=== PATIENT | male | born 1940 | race Caucasian/White ===

== ENCOUNTER 2017-03-18 09:09 | Inpatient (IN) | payer MEDICARE ==
[~2017-03-18] VITALS: Ht 175.3 cm; Wt 76.6 kg
[2017-03-20] MEDS ORDERED: MERC50TA PO (10:15)
[2017-03-20] MEDS ORDERED: LIAL1.2T PO (10:15)
[2017-03-20] MEDS ORDERED: AMLO5TAB2 PO (10:15)
[2017-03-20] MEDS ORDERED: HYDR25TA5 PO (10:15)
[2017-03-20] MEDS ORDERED: MULTTAB23 PO (10:15)
[2017-03-20] MEDS ORDERED: TIMO0.5S30 RIGHT EYE (10:15)
[2017-03-20] MEDS ORDERED: ATOR20TA15 PO (10:15)
[2017-03-20] MEDS ORDERED: VITA2000 PO (10:15)
[2017-03-20] MEDS ORDERED: LEVO100T5 PO (10:15)
[2017-03-20] MEDS ORDERED: FLAX100013 PO (10:15)
[2017-03-20] MEDS ORDERED: LATA0.002 RIGHT EYE (10:15)
[2017-03-20] MEDS ORDERED: METO50TA11 PO (10:29)
[2017-03-27] MEDS ORDERED: ONDANSETRON HCL 4 MG/2 ML VIAL IV PUSH ONE (11:45)
[2017-03-27] MEDS ORDERED: NEOSTIGMINE 3 MG/3 ML SYR IV ONE (11:45)
[2017-03-27] MEDS ORDERED: PROPOFOL 200 MG/20 ML AMP IV ONE (11:45)
[2017-03-27] MEDS ORDERED: SODIUM CHLORID 0.9% 500 ML INJ 500 ML IV ONE (11:45)
[2017-03-27] MEDS ORDERED: LACTATED RINGER'S 1000 ML INJ 2,000 ML IV ONE (11:45)
[2017-03-27] MEDS ORDERED: SODIUM CHLOR 0.9% 250 ML INJ 250 ML IV ONE (11:45)
[2017-03-27] MEDS ORDERED: PHENYLEPH/NS 1000 MCG/10 ML SYR IV ONE (11:45)
[2017-03-27] MEDS ORDERED: LACTATED RINGER'S 1000 ML IV PRN (13:00)
[2017-03-27] MEDS ORDERED: METOPROLOL TARTRATE 25 MG TAB PO PRN (13:00)
[2017-03-27] MEDS ORDERED: INSULIN HUMAN REGULAR 1,000 UNITS/10 ML VIAL SQ PRN (13:00)
[2017-03-27] MEDS ORDERED: POVIDONE IODINE 5% (ANTISEPSIS KIT) 4 APPLICATIONS EACH NARE PRN (13:00)
[2017-03-27] MEDS ORDERED: SODIUM CHLORID 0.9% 500 ML IV PRN (13:00)
[2017-03-27] MEDS ORDERED: CHLORHEXIDINE GLUCONATE 2 % 1 PACK (2 CLOTHS) TOPICAL PRN (13:00)
[2017-03-27 13:08] VITALS: BP 157/82; PULSE 82; RESP 16; TEMP 98.2; O2SAT 97
[2017-03-27] MEDS ORDERED: ALVIMOPAN 12 MG CAPSULE - On Call PO SCH (13:15)
[2017-03-27] MEDS ORDERED: ceFAZolin 1,000 MG/NS 100 ML IV SCH ×2 (13:15)
[2017-03-27] MEDS ORDERED: METRONIDAZOLE 500 MG/100 ML ISONTONIC SOLN IV SCH (13:30)
[2017-03-27] MEDS: DEXT 5%-NACL 0.9% 1000 ML INJ 1,000 ML IV SCH ×2 (13:30→21:30)
[2017-03-27] MEDS ORDERED: FAMOTIDINE 20 MG/2 ML VIAL ONE (14:33)
[2017-03-27] MEDS ORDERED: ACETAMINOPHEN 1000 MG/100 ML VIAL IV ONE (14:33)
[2017-03-27] MEDS ORDERED: fentaNYL CITRATE 250 MCG/5 ML AMP ONE ×2 (14:33→17:36)
[2017-03-27] MEDS ORDERED: MIDAZOLAM HCL 2 MG/2 ML VIAL ONE (14:33)
--- NOTE | 2017-03-27 15:58 | ECHRPT ---
Indication: EF CHF/ R/O CONCLUSIONS Normal left ventricular size. Wall thickness is normal. The left ventricular systolic function is mildly reduced with an estimated ejection fraction in the range of 45- 50%. The left atrial size is upper limits of normal. Normal atrial septal thickness Trace mitral valve regurgitation. Mitral annular calcification is present. Mild aortic valve stenosis. Moderate thickening of the aortic valve leaflet. Aortic valve mean gradient is 21 mmHg. Trace aortic valve regurgitation. BP: / HR: Rhythm: Other MEASUREMENTS (Male / Female) Normal Values Technical Quality: 2D ECHO LV Diastolic Diameter PLAX 4.8 cm 4.2 - 5.9 / 3.9 - 5.3 cm LV Systolic Diameter PLAX 3.7 cm IVS Diastolic Thickness 0.8 cm 0.6 - 1.0 / 0.6 - 0.9 cm LVPW Diastolic Thickness 0.8 cm 0.6 - 1.0 / 0.6 - 0.9 cm LV Relative Wall Thickness 0.3 LVOT Diameter 2.0 cm DOPPLER AV Peak Velocity 312.2 cm/s AV Peak Gradient 39.0 mmHg AV Mean Gradient 18.8 mmHg AV Velocity Time Integral 69.1 cm LVOT Peak Velocity 92.7 cm/s LVOT Peak Gradient 3.4 mmHg LVOT Velocity Time Integral 25.9 cm AV Area Cont Eq vti 1.2 cm AV Area Cont Eq pk 0.9 cm TR Peak Velocity 239.0 cm/s TR Peak Gradient 22.8 mmHg FINDINGS LEFT VENTRICLE Normal left ventricular size. Wall thickness is normal. The left ventricular systolic function is mildly reduced with an estimated ejection fraction in the range of 45- 50%. RIGHT VENTRICLE Normal right ventricular size and systolic function. LEFT ATRIUM The left atrial size is upper limits of normal. RIGHT ATRIUM The right atrial size is normal. ATRIAL SEPTUM Normal atrial septal thickness MITRAL VALVE Trace mitral valve regurgitation. Mitral annular calcification is present. AORTIC VALVE Mild aortic valve stenosis. Moderate thickening of the aortic valve leaflet. Aortic valve mean gradient is 21 mmHg. Trace aortic valve regurgitation. TRICUSPID VALVE Structurally normal tricuspid valve. No tricuspid valve stenosis or regurgitation. Yossi Buckner MD (Electronically Signed) Final Date:27 March 2017 15:56
[2017-03-27] MEDS: D5-LR + KCL 20 MEQ INJ 1,000 ML IV SCH ×2 (17:28→18:45)
[2017-03-27] MEDS ORDERED: ENALAPRILAT 1.25 MG/ML VIAL IV PRN (17:30)
[2017-03-27] MEDS ORDERED: KETOROLAC TROMETHAMINE 30 MG/ML (IVP) VIAL IVP PRN (17:30)
[2017-03-27] MEDS ORDERED: NALOXONE HCL 0.4 MG/ML AMP IV PRN (17:30)
[2017-03-27] MEDS ORDERED: Post-op Orders (for Pharmacy) MISC XX ONE (17:30)
[2017-03-27] MEDS ORDERED: ZOLPIDEM TARTRATE 5 MG TAB PO PRN (17:30)
[2017-03-27] MEDS ORDERED: ONDANSETRON HCL 4 MG/2 ML VIAL IV PRN (17:30)
[2017-03-27] MEDS ORDERED: DO NOT ADM ANY ANTICOAGULANT DRUGS PRN (17:30)
[2017-03-27] MEDS ORDERED: ACETAMINOPHEN/HYDROcodone 325 MG/5 MG TAB PO PRN ×2 (17:30)
[2017-03-27] MEDS ORDERED: SODIUM CHLORIDE 0.9% FLUSH 10 ML FLUSH IV FLUSH PRN (17:30)
[2017-03-27] MEDS ORDERED: BENZOCAINE 6 MG/MENTHOL 10 MG LOZENGE BUCCAL PRN (17:30)
[2017-03-27] MEDS ORDERED: POTASSIUM CHLOR 40 MEQ PREMIX 100 ML IV PRN (17:30)
[2017-03-27] MEDS: METOCLOPRAMIDE HCL 10 MG/2 ML VIAL IVS SCH ×2 (18:00→23:42)
[2017-03-27 18:35] LABS: AUTOMATED NEUTROPHIL # 21.1 TH/MM3 (1.8-7.7); BASOPHIL # 0.1 TH/MM3 (0-0.2); BASOPHIL % 0.5 % (0.0-2.0); EOSINOPHIL # 0.1 TH/MM3 (0-0.4); EOSINOPHIL % 0.4 % (0.0-4.0); HEMATOCRIT 37.6 % (39.0-51.0); LYMPH % 8.9 % (9.0-44.0); LYMPHOCYTE # 2.3 TH/MM3 (1.0-4.8); MEAN CELL VOLUME 91.1 FL (80.0-100.0); MEAN CORPUSCULAR HEMOGLOBIN 31.4 PG (27.0-34.0); MEAN CORPUSCULAR HGB CONC 34.4 % (32.0-36.0); MONO % 8.8 % (0.0-8.0); NEUT % 81.4 % (16.0-70.0); PLATELET COUNT 329 TH/MM3 (150-450); RED BLOOD COUNT 4.12 MIL/MM3 (4.50-5.90); RED CELL DISTRIBUTION WIDTH 13.7 % (11.6-17.2)
[2017-03-27 18:39] LABS: HEMO FLAGS AUTO DIFF
[2017-03-27] MEDS: MORPHINE SULFATE 30 MG/30 ML PCA IV SCH (18:46)
[2017-03-27 18:50] LABS: POTASSIUM 2.7 MEQ/L (3.5-5.1)
[2017-03-27] MEDS: POTASSIUM CHLOR 20 MEQ PREMIX 100 ML IV PRN ×2 (19:02→21:26)
[2017-03-27 19:22] LABS: BANDS 2 % (0-6); NEUTROPHIL # MANUAL DIFF 21.1 TH/MM3 (1.8-7.7); PLATELET ESTIMATE SMEAR NORMAL (NORMAL); PLATELET MORPHOLOGY NORMAL (NORMAL); POLYS (SEG NEUTROPHILS) 79 % (16-70); SCAN/DIFF FINAL DIFF MANUAL; WBC DIFF SAMPLE 100
[2017-03-27 20:00] VITALS: BP 128/59; PULSE 85; RESP 22; TEMP 97.8; O2SAT 99
[2017-03-27] MEDS: SODIUM CHLORIDE 0.9% FLUSH 10 ML FLUSH IV FLUSH SCH (21:00)
[2017-03-27] MEDS: FUROSEMIDE 20 MG/2 ML VIAL IV SCH (21:27)
[2017-03-27] MEDS: metroNIDAZOLE 500 MG INJ 100 ML IV SCH (21:27)
[2017-03-27 22:00] VITALS: BP 119/63; PULSE 82; PULSE 91; RESP 21; RESP 22; TEMP 97.9; O2SAT 96
[2017-03-27] MEDS: PCA - TOTAL MG MORPHINE DELIVERED PER SHIFT SCH (22:00)
[2017-03-27] MEDS: ceFAZolin 2 GM PREMIX 50 ML IV SCH (22:22)
[2017-03-28] VITALS (12 sets, daily range): BP systolic 121–141; BP diastolic 58–64; PULSE 72–96; RESP 17–25; TEMP 96.2–98.6; O2SAT 92–97
[2017-03-28] MEDS: D5-LR + KCL 20 MEQ INJ 1,000 ML IV SCH ×6 (00:08→20:21)
[2017-03-28] MEDS: DEXT 5%-NACL 0.9% 1000 ML INJ 1,000 ML IV SCH (01:57)
[2017-03-28 02:31] LABS: AUTOMATED NEUTROPHIL # 16.6 TH/MM3 (1.8-7.7); BASOPHIL # 0.1 TH/MM3 (0-0.2); BASOPHIL % 0.3 % (0.0-2.0); HEMATOCRIT 37.8 % (39.0-51.0); HEMO FLAGS DIFF FINAL; LYMPH % 4.4 % (9.0-44.0); LYMPHOCYTE # 0.8 TH/MM3 (1.0-4.8); MEAN CELL VOLUME 91.3 FL (80.0-100.0); MEAN CORPUSCULAR HEMOGLOBIN 31.2 PG (27.0-34.0); MEAN CORPUSCULAR HGB CONC 34.1 % (32.0-36.0); MONO % 9.5 % (0.0-8.0); NEUT % 85.8 % (16.0-70.0); PLATELET COUNT 285 TH/MM3 (150-450); RED BLOOD COUNT 4.14 MIL/MM3 (4.50-5.90); RED CELL DISTRIBUTION WIDTH 13.8 % (11.6-17.2); WHITE BLOOD COUNT 19.3 TH/MM3 (4.0-11.0)
[2017-03-28 02:54] LABS: BICARBONATE 29.3 MEQ/L (21.0-32.0); POTASSIUM 3.1 MEQ/L (3.5-5.1)
[2017-03-28] MEDS: POTASSIUM CHLOR 20 MEQ PREMIX 100 ML IV PRN (03:07)
[2017-03-28 03:15] LABS: CALCIUM-PROTEIN CORRECTED 7.4 MG/DL (8.5-10.1)
[2017-03-28] MEDS: ceFAZolin 2 GM PREMIX 50 ML IV SCH ×2 (05:43→13:34)
[2017-03-28] MEDS: METOCLOPRAMIDE HCL 10 MG/2 ML VIAL IVS SCH ×3 (05:43→16:47)
[2017-03-28] MEDS: metroNIDAZOLE 500 MG INJ 100 ML IV SCH ×2 (05:43→14:19)
[2017-03-28] MEDS: LEVOTHYROXINE SODIUM 100 MCG TAB PO SCH (06:00)
[2017-03-28] MEDS: PCA - TOTAL MG MORPHINE DELIVERED PER SHIFT SCH ×3 (06:00→20:22)
--- NOTE | 2017-03-28 06:58 | HHI.PR ---
Subjective Remarks No N or V. Not much pain. Objective Vital Signs Date Time Temp Pulse Resp B/P Pulse Ox O2 Delivery O2 Flow Rate FiO2 03/28/17 06:00 20 03/28/17 06:00 20 03/28/17 06:00 80 03/28/17 04:07 20 03/28/17 04:00 89 03/28/17 04:00 98.0 89 24 122/58 96 03/28/17 02:00 82 03/28/17 00:00 98.0 80 19 125/58 95 03/28/17 00:00 80 03/27/17 22:00 97.9 91 21 119/63 96 03/27/17 22:00 82 03/27/17 22:00 22 03/27/17 22:00 22 03/27/17 20:00 97.9 79 18 117/57 100 Nasal Cannula 2 03/27/17 20:00 97.8 85 22 128/59 99 03/27/17 19:45 83 20 122/59 100 Nasal Cannula 2 03/27/17 19:30 83 16 118/59 100 Nasal Cannula 2 03/27/17 19:03 16 03/27/17 19:00 80 16 117/56 100 Nasal Cannula 2 03/27/17 18:46 16 03/27/17 18:30 77 16 115/55 99 Nasal Cannula 2 03/27/17 18:15 77 16 118/56 100 Nasal Cannula 2 03/27/17 18:00 78 16 122/59 96 Nasal Cannula 2 03/27/17 17:45 78 16 121/64 100 Nasal Cannula 2 03/27/17 17:30 81 15 135/67 100 Nasal Cannula 4 03/27/17 17:26 98.1 78 16 128/68 100 Nasal Cannula 4 03/27/17 13:08 98.2 82 16 157/82 97 I/O 03/27/17 03/27/17 03/27/17 03/28/17 03/28/17 03/28/17 06:59 14:59 22:59 06:59 14:59 22:59 Intake Total 1252 ml 1437 ml Output Total 1620 ml 1910 ml Balance -368 ml -473 ml Intake Oral 120 ml IV Total 1252 ml 1317 ml Output Urine Total 1450 ml 1850 ml Stool Total 0 ml 0 ml Drainage Total 170 ml 60 ml # Voids 1 Result Diagram: 03/28/1721103/28/17211 Objective Remarks VS-S Abd: flat,stoma pink I&Os-OK Labs- K+ being repleted Assessment and Plan Assessment and Plan Stable POD#1 Transfer,IV to [facility] Sundar Malloy MD Mar 28, 2017 06:58
[2017-03-28] MEDS: METOPROLOL SUCCINATE 50 MG EXTENDED RELEASE TAB PO SCH (08:27)
[2017-03-28] MEDS: amLODIPine BESYLATE 5 MG TAB PO SCH ×2 (08:27→20:22)
[2017-03-28] MEDS: HYDROCHLOROTHIAZIDE 25 MG TAB PO SCH (08:27)
[2017-03-28] MEDS: FUROSEMIDE 20 MG/2 ML VIAL IV SCH ×2 (08:27→20:22)
[2017-03-28] MEDS: ALVIMOPAN 12 MG CAPSULE - Post-op dosing PO SCH ×2 (08:27→20:22)
[2017-03-28] MEDS: TIMOLOL MALEATE 0.5% OPHT SOLN 5 ML BTL RIGHT EYE SCH (08:28)
[2017-03-28] MEDS: PANTOPRAZOLE SODIUM 40 MG VIAL IVP SCH (08:28)
[2017-03-28] MEDS: SODIUM CHLORIDE 0.9% FLUSH 10 ML FLUSH IV FLUSH SCH ×2 (08:28→20:22)
[2017-03-28] MEDS ORDERED: PNEUMOCOCCAL POLYVALENT INJ 25 MCG/0.5 ML SYR IM ONE (10:00)
--- NOTE | 2017-03-28 10:57 | PD.WCN.NOT ---
Wound Consult Description: Consult for NEW OSTOMY TEACHING of ILEOSTOMY per Dr Malloy Communicated with: Patient Recommendation: Drink plenty of fluids and watch the nurses open, empty, and close pouch. Practice opening and closing pouch from ileostomy kit that was given Additional Information: Patient seen on for Ostomy assessment and teaching Ostomy Type: Ileostomy Surgeon: Sundar Malloy MD Date of Surgery: Mar 27, 2017 Educated patient on: Watch the nurses open the pouch, empty the pouch, and close the pouch. Read booklet that was left for ileostomy information. Practice opening and closing pouch in the kit provided. Additional information Patient states that he has never had surgery before and asked what is expected of him regarding the ostomy. It was explained that the patient should be watching the nurses empty the pouch of his liquid coming out of his stoma. At discharge that is something that he will need to know how to do on his own. He stated that he could hardly move around this morning and voices concerns over having to take care of this. The patient was further educated on the transition that would take place over the next few days and he would become more mobile. Education materials will be left for him to read and appliances he can use for practice as well. Patient will be seen on Friday for follow up of more education. Stoma is visualized on the right lower abdomen. Stoma is dark pink, round, moist, moderately protruding, functioning with ~25ml of green liquid effluent noted in pouch with minimal air. Stoma is mildly edematous and lumen is noted at 4 o'clock. Appliance is intact with foam tape noted to the lower abdomen. Patients tray was placed on his bedside table and the patient was assisted to a sitting position so that he could eat his breakfast prior to leaving patient room. Merline Sanders [facility] Mar 28, 2017 10:57
--- NOTE | 2017-03-28 12:49 | MP ---
cc: TRE MANDUJANO,AMARIS Bartholomew M.D. DATE OF SURGERY: 03/27/2017 PREOPERATIVE DIAGNOSIS Colovesical fistula secondary to Crohn's disease. 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 PROCEDURE 1. Left colectomy with low colorectal anastomosis. 2. Appendectomy. 3. Mobilization of the splenic flexure with omental pelvic flap. SURGEON Dr. Malloy P[employer]ER PROP PLAYER SURGEON Dr. Yao ANESTHESIA General endotracheal. OPERATING TIME One hour and 40 minutes. OPERATIVE FINDINGS This patient had known Crohn's disease for at least 15 years. He developed a colovesical fistula as evidenced by cystoscopy and CT scan. Colonoscopy showed that he had mid rectal Crohn's disease along with some sigmoid disease and he has always had his Crohn's disease located in the rectosigmoid region. He had been maintained on 6-mercaptopurine and Lialda and has been off of his mercaptopurine for approximately six weeks. Because of the rectal-sparing we offered him a chance at colectomy with colorectal or coloanal anastomosis with temporary diversion and he decided to do follow through with this procedure. Exploration of the abdominal cavity revealed that the liver was palpably normal as was the gallbladder. The remainder of the colon and small bowel was normal except for the appendix which was dilated and the tip of the appendix was stuck in the colovesical fistula region. For this reason it was excised en bloc with the specimen. OPERATIVE TECHNIQUE The patient was placed on the table in the supine position. After adequate general endotracheal anesthesia the legs were placed in the perineal lithotomy position and the abdomen and perineum were prepped and draped in the usual manner. A transverse infraumbilical skin incision was made and carried down through subcutaneous tissue and the rectus muscles and the peritoneal cavity was entered with the above-mentioned findings. Our attention was turned to the sigmoid colon. It was mobilized along its peritoneal reflection up the descending colon and the splenic flexure and the transverse colon was fully mobilized, mobilizing the omentum from the transverse colon. Next, the left ureter was identified and the superior hemorrhoidal vessels were doubly clamped, cut and doubly ligated with 0 Vicryl ligatures and the inferior mesenteric vein was likewise clamped, cut and ligated. The retrorectal space was entered and the process was stuck to the bladder dome and it was dissected free of the bladder dome encountering about 2 cc of purulent material which was aspirated. The remainder of the dissection was taken along the dome of the bladder, not entering the bladder or the lower sigmoid colon. Next, the base of the fistula site on the dome of the bladder was inspected and curetted clean and then hemostasis was obtained with electrocautery. No definite large hole could be found in the bladder dome. Next, the lateral pelvic peritoneum was incised bilaterally and the retrorectal space was dissected down the avascular plane right to the pelvic floor. The lateral pelvic peritoneum was incised bilaterally and the anterior cul-de-sac was also dissected and the cul-de-sac was dissected down posterior to the prostate to the pelvic floor as well. Once we circumferentially dissected down to the pelvic floor the full mesorectum had been mobilized and the lower rectum was cleared and the Contour stapling device was placed across the lower rectum a couple of centimeters above his pelvic floor. Once the rectum was divided the left colic vessels were clamped, cut and ligated and the dissection was taken up to the marginal vessels distal to the middle colic vessels. Once this was done a place for division of the colon was decided and it was in the upper descending colon. The remainder of the mesentery was clamped, cut and ligated and the colon was cleared and it was good quality without any evidence of Crohn's disease. A pursestring stapling device was placed on this and a 29 anvil of the [employer] EEA stapling instrument was placed in the proximal bowel and the pursestring was tied. Next, the EEA instrument was inserted into the anal canal and the trocar was brought out through the center of the Contour staple line and the instrument was connected, closed and fired creating the anastomosis with two circular doughnuts and no tension on the anastomosis. The blood supply was excellent on inspection. Dr. Yao then did proctosigmoidoscopy examination insufflating air into the very low rectum and saline solution was placed in the pelvis and no air leaks were identified. Next, the omentum was brought down the left colic gutter and placed anterior to the rectal anastomosis and posterior to the area where the bladder fistula was. It should be mentioned that the appendix base was stapled with a TX 30 at the base of the cecum and then the appendix was ligated and the tip of the appendix had been stuck in the colovesical fistula area and it was resected en bloc with this dissection described above. Once the omental flap was placed a #10 Jose drain was placed through a separate stab wound in the right lower quadrant, placed in the posterior pelvis. The abdominal cavity was irrigated thoroughly with 3 liters of saline solution and aspirated dry as was the pelvis. A stoma site was made in the right upper quadrant at the midportion of the rectus muscle and a point was chosen for the diverting ileostomy. A window was made in the mesentery and the distal limb of the ileostomy was stapled closed with a TX 30 stapling device. The ileostomy was brought out through the stoma site and the small bowel was then laid in the abdominal cavity in an healthcare account manager manner after inspection for hemostasis which was kept controlled with ligature and cautery throughout the case. Once this was done the abdominal cavity was closed in layers using double-stranded #1 PDS for the posterior rectus sheath, irrigating the muscle layer with a liter of saline solution and then closing the anterior rectus sheath with a double-stranded #1 PDS as well. The subcutaneous tissue was irrigated thoroughly with saline solution and aspirated dry, and then the skin was closed with running 3-0 Vicryl subcuticular suture. The ileostomy was matured in loop fashion, having previously closed the distal limb with a stapler. It was matured with interrupted 3-0 Vicryl sutures and a 57 mm appliance was placed on the ileostomy. Dressings were applied. Sponge, needle and instrument counts were reported as correct. The estimated blood loss was 25 cc. Operating time was one hour and 40 minutes. The patient tolerated the procedure well and left the operating room in good condition. MD SOPHIA Denise/PAGE /5:37 PM /12:21 PM
--- NOTE | 2017-03-28 13:18 | PD.WCN.NOT ---
Wound Consult Description: Consult for NEW OSTOMY TEACHING of ILEOSTOMY per Dr Malloy Communicated with: Patient Mary Kate Recommendation: Drink plenty of fluids and watch the nurses open, empty, and close pouch. ileostomy kit given to patient, booklet taken out and shown to patient prior to him being moved to [address] [place] [address] so that he can read this and become familiar with terms and familiarize himself with the appliance in the kit. Additional Information: Patient is being transferred to [address] [place] [address] and will be followed up on Friday. Ostomy Type: Ileostomy Surgeon: Sundar Malloy MD Date of Surgery: Mar 27, 2017 Complete: Starter kit, Education materials Additional information Patient is measuring 1 1/2" supplies ordered for 2 1/4" [facility]line [facility] Mar 28, 2017 13:18
[2017-03-28] MEDS: ATORVASTATIN 20 MG TAB PO SCH (20:22)
[2017-03-28] MEDS: LATANOPROST 0.005% OPHT SOLN 2.5 ML BTL RIGHT EYE SCH (20:23)
[2017-03-28] MEDS ORDERED: ALVIMOPAN 12 MG CAPSULE PO SCH (21:00)
[2017-03-29] VITALS: BP 123/65; PULSE 98; RESP 18; TEMP 95.9; O2SAT 92
[2017-03-29] MEDS: D5-LR + KCL 20 MEQ INJ 1,000 ML IV SCH ×3 (00:13→08:41)
[2017-03-29] MEDS: METOCLOPRAMIDE HCL 10 MG/2 ML VIAL IVS SCH ×5 (00:13→23:36)
[2017-03-29] MEDS: MORPHINE SULFATE 30 MG/30 ML PCA IV SCH (03:22)
[2017-03-29] MEDS: PCA - TOTAL MG MORPHINE DELIVERED PER SHIFT SCH ×3 (04:39→20:16)
[2017-03-29] MEDS: LEVOTHYROXINE SODIUM 100 MCG TAB PO SCH (04:39)
[2017-03-29 07:39] LABS: AUTOMATED NEUTROPHIL # 18.2 TH/MM3 (1.8-7.7); BASOPHIL # 0.1 TH/MM3 (0-0.2); BASOPHIL % 0.4 % (0.0-2.0); EOSINOPHIL # 0.1 TH/MM3 (0-0.4); EOSINOPHIL % 0.3 % (0.0-4.0); HEMATOCRIT 36.5 % (39.0-51.0); LYMPH % 7.6 % (9.0-44.0); LYMPHOCYTE # 1.7 TH/MM3 (1.0-4.8); MEAN CELL VOLUME 90.9 FL (80.0-100.0); MEAN CORPUSCULAR HEMOGLOBIN 31.1 PG (27.0-34.0); MEAN CORPUSCULAR HGB CONC 34.3 % (32.0-36.0); MONO % 11.9 % (0.0-8.0); NEUT % 79.8 % (16.0-70.0); PLATELET COUNT 274 TH/MM3 (150-450); RED BLOOD COUNT 4.01 MIL/MM3 (4.50-5.90); RED CELL DISTRIBUTION WIDTH 13.9 % (11.6-17.2); WHITE BLOOD COUNT 22.8 TH/MM3 (4.0-11.0)
[2017-03-29 07:46] LABS: HEMO FLAGS AUTO DIFF
[2017-03-29 07:54] LABS: BICARBONATE 29.5 MEQ/L (21.0-32.0); POTASSIUM 3.1 MEQ/L (3.5-5.1)
[2017-03-29 08:00] VITALS: BP 121/62; PULSE 88; RESP 16; TEMP 98.1; O2SAT 94
[2017-03-29] MEDS: PANTOPRAZOLE SODIUM 40 MG VIAL IVP SCH (08:30)
[2017-03-29] MEDS: FUROSEMIDE 20 MG/2 ML VIAL IV SCH ×2 (08:30→20:16)
[2017-03-29] MEDS: ALVIMOPAN 12 MG CAPSULE - Post-op dosing PO SCH ×2 (08:30→20:16)
[2017-03-29] MEDS: amLODIPine BESYLATE 5 MG TAB PO SCH ×2 (08:30→20:16)
[2017-03-29] MEDS: METOPROLOL SUCCINATE 50 MG EXTENDED RELEASE TAB PO SCH (08:30)
[2017-03-29] MEDS: SODIUM CHLORIDE 0.9% FLUSH 10 ML FLUSH IV FLUSH SCH ×2 (08:30→20:16)
[2017-03-29 08:31] LABS: SCAN/DIFF AUTO DIFF CONFIRMED
[2017-03-29] MEDS: HYDROCHLOROTHIAZIDE 25 MG TAB PO SCH (08:31)
[2017-03-29] MEDS: TIMOLOL MALEATE 0.5% OPHT SOLN 5 ML BTL RIGHT EYE SCH (08:36)
[2017-03-29] MEDS: POTASSIUM CHLOR 20 MEQ PREMIX 100 ML IV PRN (08:42)
--- NOTE | 2017-03-29 11:30 | HHI.PR ---
Subjective Remarks POD#2 s/p LAR,diverting ileo comfortable Objective Vital Signs Date Time Temp Pulse Resp B/P Pulse Ox O2 Delivery O2 Flow Rate FiO2 03/29/17 08:00 98.1 88 16 121/62 94 03/29/17 04:39 18 03/29/17 03:22 18 03/29/17 00:00 95.9 98 18 123/65 92 03/28/17 21:39 18 03/28/17 20:22 18 03/28/17 20:00 96.9 72 18 121/62 93 03/28/17 16:00 97.9 96 17 131/61 92 03/28/17 14:00 17 03/28/17 14:00 17 03/28/17 12:46 96.2 95 17 127/60 94 03/28/17 12:00 98.6 89 25 141/60 95 03/28/17 12:00 90 I/O 03/28/17 03/28/17 03/28/17 03/29/17 03/29/17 03/29/17 07:00 15:00 23:00 07:00 15:00 23:00 Intake Total 1437 ml 560 ml 1595 ml 1050 ml Output Total 1910 ml 1450 ml 910 ml 820 ml Balance -473 ml -890 ml 685 ml 230 ml Intake Oral 120 ml 560 ml 480 ml IV Total 1317 ml 1115 ml 1050 ml Output Urine Total 1850 ml 1400 ml 850 ml 600 ml Stool Total 0 ml 150 ml Drainage Total 60 ml 50 ml 60 ml 70 ml # Bowel Movements 0 Result Diagram: 03/29/1762103/29/17621 Objective Remarks Abdomen soft, mild distension, tender Wound clean JANICE serosanguinous Ileostomy pink Assessment and Plan Assessment and Plan Doing well Mobilize Decrease IVF K replaced Graciela Pedroza MD Mar 29, 2017 11:30
[2017-03-29 12:00] VITALS: BP 123/59; PULSE 88; RESP 17; TEMP 96; O2SAT 93
[2017-03-29 16:00] VITALS: BP 128/60; PULSE 82; RESP 16; TEMP 98.2; O2SAT 95
[2017-03-29 20:00] VITALS: BP 124/61; PULSE 92; RESP 18; TEMP 96.6; O2SAT 94
[2017-03-29] MEDS: ATORVASTATIN 20 MG TAB PO SCH (20:16)
[2017-03-29] MEDS: LATANOPROST 0.005% OPHT SOLN 2.5 ML BTL RIGHT EYE SCH (20:17)
[2017-03-29 20:22] VITALS: RESP 18
[2017-03-30] VITALS (9 sets, daily range): BP systolic 106–139; BP diastolic 55–73; PULSE 86–99; RESP 16–18; TEMP 96.9–99.9; O2SAT 93–97
[2017-03-30] MEDS: D5-LR + KCL 20 MEQ INJ 1,000 ML IV SCH ×3 (02:16→20:21)
[2017-03-30] MEDS: LEVOTHYROXINE SODIUM 100 MCG TAB PO SCH (05:20)
[2017-03-30] MEDS: PCA - TOTAL MG MORPHINE DELIVERED PER SHIFT SCH ×3 (05:20→20:21)
[2017-03-30] MEDS: METOCLOPRAMIDE HCL 10 MG/2 ML VIAL IVS SCH ×4 (05:20→20:22)
[2017-03-30] MEDS: METOPROLOL SUCCINATE 50 MG EXTENDED RELEASE TAB PO SCH (07:32)
[2017-03-30] MEDS: HYDROCHLOROTHIAZIDE 25 MG TAB PO SCH (07:32)
[2017-03-30] MEDS: ALVIMOPAN 12 MG CAPSULE - Post-op dosing PO SCH ×2 (07:32→20:20)
[2017-03-30] MEDS: PANTOPRAZOLE SODIUM 40 MG VIAL IVP SCH (07:32)
[2017-03-30] MEDS: amLODIPine BESYLATE 5 MG TAB PO SCH ×2 (07:32→20:20)
[2017-03-30] MEDS: SODIUM CHLORIDE 0.9% FLUSH 10 ML FLUSH IV FLUSH SCH ×2 (07:33→20:19)
[2017-03-30] MEDS: TIMOLOL MALEATE 0.5% OPHT SOLN 5 ML BTL RIGHT EYE SCH (07:33)
[2017-03-30] MEDS: FUROSEMIDE 20 MG/2 ML VIAL IV SCH (07:33)
[2017-03-30] MEDS ORDERED: LOPERAMIDE HCL 2 MG CAP PO ONE (12:00)
[2017-03-30] MEDS: ATORVASTATIN 20 MG TAB PO SCH (20:20)
[2017-03-30] MEDS: LATANOPROST 0.005% OPHT SOLN 2.5 ML BTL RIGHT EYE SCH (20:21)
[2017-03-31] VITALS: BP 118/57; PULSE 90; RESP 18; TEMP 98.7; O2SAT 97
[2017-03-31] MEDS: PCA - TOTAL MG MORPHINE DELIVERED PER SHIFT SCH (05:00)
[2017-03-31] MEDS: LEVOTHYROXINE SODIUM 100 MCG TAB PO SCH (05:00)
[2017-03-31] MEDS: METOCLOPRAMIDE HCL 10 MG/2 ML VIAL IVS SCH ×2 (05:01→08:44)
[2017-03-31 08:00] VITALS: BP 133/64; PULSE 90; RESP 19; TEMP 97.6; O2SAT 96
[2017-03-31] MEDS: D5-LR + KCL 20 MEQ INJ 1,000 ML IV SCH ×2 (08:41→18:08)
[2017-03-31] MEDS: PANTOPRAZOLE SODIUM 40 MG VIAL IVP SCH (08:42)
[2017-03-31] MEDS: METOPROLOL SUCCINATE 50 MG EXTENDED RELEASE TAB PO SCH (08:43)
[2017-03-31] MEDS: HYDROCHLOROTHIAZIDE 25 MG TAB PO SCH (08:43)
[2017-03-31] MEDS: ALVIMOPAN 12 MG CAPSULE - Post-op dosing PO SCH (08:43)
[2017-03-31] MEDS: TIMOLOL MALEATE 0.5% OPHT SOLN 5 ML BTL RIGHT EYE SCH (08:43)
[2017-03-31] MEDS: amLODIPine BESYLATE 5 MG TAB PO SCH ×2 (08:43→22:29)
[2017-03-31] MEDS: SODIUM CHLORIDE 0.9% FLUSH 10 ML FLUSH IV FLUSH SCH ×2 (08:44→22:30)
[2017-03-31] MEDS ORDERED: LOPERAMIDE HCL 2 MG CAP PO SCH (09:00)
--- NOTE | 2017-03-31 09:01 | HHI.PR ---
Subjective Remarks No N or V. Not much pain. 2300 cc out of Ileostomy.. Had 1 Imodium yesterday. Objective Vital Signs Date Time Temp Pulse Resp B/P (MAP) Pulse Ox O2 Delivery O2 Flow Rate FiO2 03/31/17 08:00 97.6 90 19 133/64 (87) 96 03/31/17 05:00 18 03/31/17 00:00 98.7 90 18 118/57 (77) 97 03/30/17 21:39 18 03/30/17 20:21 18 03/30/17 20:00 97.2 98 18 139/73 (95) 97 03/30/17 16:00 98.9 99 16 125/69 (87) 95 03/30/17 14:00 18 03/30/17 12:00 96.9 86 17 116/73 (87) 97 03/30/17 10:49 96 21 I/O 03/30/17 03/30/17 03/30/17 03/31/17 03/31/17 03/31/17 07:00 15:00 23:00 07:00 15:00 23:00 Intake Total 800 ml 2387 ml 120 ml Output Total 1150 ml 2290 ml 1390 ml Balance -1150 ml 800 ml 97 ml -1390 ml 120 ml Intake Oral 1200 ml 120 ml IV Total 800 ml 1187 ml Output Urine Total 150 ml 1000 ml 300 ml Stool Total 1000 ml 1250 ml 1050 ml Drainage Total 40 ml 40 ml Result Diagram: 03/29/1762103/29/17621 Objective Remarks VS-S Abd: flat,stoma pink,wound clean I&Os-OK Labs-Will re check because of high outputs Assessment and Plan Assessment and Plan Stable POD#4 IVs at 100/hr,D/C Bowers, D/C CHILD CARE CENTRE MANAGER. Starting PO pain meds may help with outputs. C ordered. Ambulate Sundar Malloy MD Mar 31, 2017 09:01
[2017-03-31] MEDS: LOPERAMIDE HCL 2 MG CAP PO SCH (10:17)
[2017-03-31 12:00] VITALS: BP 128/60; PULSE 80; RESP 19; TEMP 96.9; O2SAT 99
[2017-03-31 13:19] LABS: AUTOMATED NEUTROPHIL # 10.8 TH/MM3 (1.8-7.7); BASOPHIL # 0.1 TH/MM3 (0-0.2); EOSINOPHIL # 0.4 TH/MM3 (0-0.4); EOSINOPHIL % 2.9 % (0.0-4.0); HEMATOCRIT 38.9 % (39.0-51.0); HEMO FLAGS DIFF FINAL; LYMPH % 7.6 % (9.0-44.0); LYMPHOCYTE # 1.1 TH/MM3 (1.0-4.8); MEAN CELL VOLUME 91.4 FL (80.0-100.0); MEAN CORPUSCULAR HEMOGLOBIN 31.5 PG (27.0-34.0); MEAN CORPUSCULAR HGB CONC 34.5 % (32.0-36.0); MONO % 11.7 % (0.0-8.0); NEUT % 76.8 % (16.0-70.0); PLATELET COUNT 373 TH/MM3 (150-450); RED BLOOD COUNT 4.26 MIL/MM3 (4.50-5.90); RED CELL DISTRIBUTION WIDTH 13.8 % (11.6-17.2); WHITE BLOOD COUNT 14.1 TH/MM3 (4.0-11.0)
--- NOTE | 2017-03-31 13:27 | PD.WCN.NOT ---
Wound Consult Description: Consult for NEW OSTOMY TEACHING of ILEOSTOMY per Dr Malloy Communicated with: Patient Recommendation: Drink plenty of fluids, continue to open, empty, and close pouch when 1/3-1/2 full. Practice opening and closing pouch from ileostomy kit that was given. Additional Information: Patient seen on for ileostomy teaching. Patient states he did not read the booklet left for him. The booklet was again taken out of his ileostomy kit and handed to him to read. The patient demonstrated how to open, empty, and close the pouch of ~200ml effluent that was liquid with green particles. Ostomy Type: Ileostomy Surgeon: Sundar Malloy MD Date of Surgery: Mar 27, 2017 Complete: Starter kit, Education materials Educated patient on: Emptying pouch of effluent when 1/3-1/2 full. Practice molding and attaching the barrier to the pouch given to the patient from the kit. Read the booklet given regarding the ileostomy surgery. Write down any questions he may have regarding the stoma, the pouching system, foods, activities, etc. Additional information Stoma is noted to right side lower abdomen, red, round, moist, functioning with lumen noted at 4 o'clock. Ostomy appliance is intact and was emptied by the patient. Supplies have been ordered in size 2 1/4" for patient to go home with and are in his room. Verbal consent obtained for [facility] to send a starter kit to his home. Merline Sanders [facility] Mar 31, 2017 13:27
[2017-03-31 13:33] LABS: BICARBONATE 29.9 MEQ/L (21.0-32.0); POTASSIUM 3.4 MEQ/L (3.5-5.1)
[2017-03-31 16:00] VITALS: BP 140/73; PULSE 96; RESP 20; TEMP 96.9; O2SAT 95
--- NOTE | 2017-03-31 16:30 | PD.WCN.NOT ---
Wound Consult Description: Consult for NEW OSTOMY TEACHING of ILEOSTOMY per Dr Malloy Recommendation: Drink plenty of fluids, continue to open, empty, and close pouch when 1/3-1/2 full. Practice opening and closing pouch from ileostomy kit that was given. Additional Information: Call placed to [facility] for starter kit to be delivered to home address Ostomy Type: Ileostomy Surgeon: Sundar Malloy MD Date of Surgery: Mar 27, 2017 Complete: Starter kit, Education materials Merline Sanders [facility] Mar 31, 2017 16:30
[2017-03-31 20:00] VITALS: BP 132/68; PULSE 97; RESP 30; TEMP 97.9; O2SAT 95
[2017-03-31] MEDS: LATANOPROST 0.005% OPHT SOLN 2.5 ML BTL RIGHT EYE SCH (21:00)
[2017-03-31] MEDS: ATORVASTATIN 20 MG TAB PO SCH (22:29)
[2017-04-01] VITALS: BP 132/76; PULSE 82; RESP 20; TEMP 98.1; O2SAT 96
[2017-04-01] MEDS: D5-LR + KCL 20 MEQ INJ 1,000 ML IV SCH ×2 (04:59→14:08)
[2017-04-01 06:06] LABS: AUTOMATED NEUTROPHIL # 7.8 TH/MM3 (1.8-7.7); BASOPHIL # 0.1 TH/MM3 (0-0.2); BASOPHIL % 1.2 % (0.0-2.0); EOSINOPHIL # 0.7 TH/MM3 (0-0.4); EOSINOPHIL % 5.4 % (0.0-4.0); HEMATOCRIT 37.8 % (39.0-51.0); HEMO FLAGS DIFF FINAL; LYMPH % 15.1 % (9.0-44.0); LYMPHOCYTE # 1.9 TH/MM3 (1.0-4.8); MEAN CELL VOLUME 91.5 FL (80.0-100.0); MEAN CORPUSCULAR HEMOGLOBIN 31.7 PG (27.0-34.0); MEAN CORPUSCULAR HGB CONC 34.6 % (32.0-36.0); MONO % 16.5 % (0.0-8.0); NEUT % 61.8 % (16.0-70.0); PLATELET COUNT 382 TH/MM3 (150-450); RED BLOOD COUNT 4.13 MIL/MM3 (4.50-5.90); RED CELL DISTRIBUTION WIDTH 13.9 % (11.6-17.2); WHITE BLOOD COUNT 12.6 TH/MM3 (4.0-11.0)
[2017-04-01] MEDS: LEVOTHYROXINE SODIUM 100 MCG TAB PO SCH (06:09)
[2017-04-01 06:23] LABS: BICARBONATE 27.2 MEQ/L (21.0-32.0); POTASSIUM 3.5 MEQ/L (3.5-5.1)
[2017-04-01 08:00] VITALS: BP 133/68; PULSE 89; RESP 17; TEMP 97.7; O2SAT 95
[2017-04-01] MEDS: SODIUM CHLORIDE 0.9% FLUSH 10 ML FLUSH IV FLUSH SCH ×2 (09:00→21:00)
[2017-04-01] MEDS: TIMOLOL MALEATE 0.5% OPHT SOLN 5 ML BTL RIGHT EYE SCH (09:00)
[2017-04-01] MEDS: PANTOPRAZOLE SODIUM 40 MG VIAL IVP SCH (09:36)
[2017-04-01] MEDS: amLODIPine BESYLATE 5 MG TAB PO SCH ×2 (09:36→21:42)
[2017-04-01] MEDS: METOPROLOL SUCCINATE 50 MG EXTENDED RELEASE TAB PO SCH (09:37)
[2017-04-01] MEDS: HYDROCHLOROTHIAZIDE 25 MG TAB PO SCH (09:37)
[2017-04-01] MEDS: LOPERAMIDE HCL 2 MG CAP PO SCH ×3 (09:37→21:42)
[2017-04-01 12:00] VITALS: BP 118/67; PULSE 78; RESP 16; TEMP 97.6; O2SAT 97
--- NOTE | 2017-04-01 12:19 | PD.WCN.NOT ---
Wound Consult Description: Consult for NEW OSTOMY TEACHING of ILEOSTOMY per Dr Malloy Communicated with: Patient was on phone at the scheduled time that we had set to meet and asked that proposal writer come back later for discussion/teaching Ostomy Type: Ileostomy Surgeon: Sundar Malloy MD Date of Surgery: Mar 27, 2017 Complete: Starter kit, Education materials Additional information Patient to be seen later today as requested. Merline Sanders [facility] Apr 01, 2017 12:19
--- NOTE | 2017-04-01 13:20 | HHI.PR ---
Subjective Remarks No N or V. Not much pain. 2300 cc out of Ileostomy.. Had 2 Imodium yesterday. Objective Vital Signs Date Time Temp Pulse Resp B/P (MAP) Pulse Ox O2 Delivery O2 Flow Rate FiO2 04/01/17 12:00 97.6 78 16 118/67 (84) 97 04/01/17 09:43 Room Air 04/01/17 08:00 97.7 89 17 133/68 (89) 95 04/01/17 00:00 98.1 82 20 132/76 (94) 96 03/31/17 20:00 97.9 97 30 132/68 (89) 95 03/31/17 16:00 96.9 96 20 140/73 (95) 95 I/O 03/31/17 03/31/17 03/31/17 04/01/17 04/01/17 04/01/17 07:00 15:00 23:00 07:00 15:00 23:00 Intake Total 120 ml 2895 ml 1240 ml Output Total 1390 ml 4555 ml 1330 ml Balance -1390 ml 120 ml -1660 ml -90 ml Intake Oral 120 ml 1220 ml 240 ml IV Total 1675 ml 1000 ml Output Urine Total 300 ml 2075 ml 400 ml Stool Total 1050 ml 2425 ml 900 ml Drainage Total 40 ml 55 ml 30 ml Result Diagram: 04/01/1743204/01/17432 Objective Remarks VS-S Abd: flat,stoma pink,wound clean I&Os-3300cc Ileostomy output Labs-Will re check because of high outputs Assessment and Plan Assessment and Plan Stable POD#5 Will increase Imodium to slow Ileostomy. Sundar Malloy MD Apr 01, 2017 13:20
[2017-04-01 16:00] VITALS: BP 131/68; PULSE 80; RESP 17; TEMP 96.6; O2SAT 98
--- NOTE | 2017-04-01 16:07 | PD.WCN.NOT ---
Wound Consult Description: Consult for NEW OSTOMY TEACHING of ILEOSTOMY per Dr Malloy Communicated with: JEAN Maloney Patient Recommendation: Practice opening the pouch, emptying the pouch of effluent, and closing the pouch. Additional Information: Patient seen on [address] [place] [address] for Ostomy teaching. Ostomy Type: Ileostomy Surgeon: Sundar Malloy MD Date of Surgery: Mar 27, 2017 Complete: Starter kit, Education materials, Other (Patient demonstrated applying the barrier to the practice stoma and attaching the pouch to the flange /barrier) Educated patient on: Opening and closing pouch Emptying pouch when 1/3-1/2 full How to apply barrier to practice stoma How to apply pouch to flange on barrier The need to change the appliance every 5-7days and PRN for peristomal skin care Changing appliance tomorrow Additional information Patient seen on [address] [place] [address] for Ostomy teaching. Patient was in bed watching tv upon arrival. Patient states that he has read the booklet provided and has been emptying his pouch. Patient was educated on measuring his stoma, over the next few weeks it may decrease in size, and with each appliance change. Today stoma size measures 1 1/8" which is smaller than last assessment and expected as the edema continues to decrease. Stoma on right lower abdomen is visualized after removing pouch from flange and noted to be red, round, moist, functioning with liquid green effluent. Lumen noted at 4 o'clock and moderately protruding. Appliances ordered for patient in room are slightly larger than what the patient needs, therefore 4 appliances were ordered in his correct size to go home with (1 3/4"). Patient was able to form barrier to practice stoma and apply the appliance. The patient then demonstrated how to attach the pouch to the flange/barrier and secure further with surrounding tape. Patient was educated on how we are going to change the appliance tomorrow, on post op day 6 , and explained that the barrier should not be left in place longer than 7 days for risks with peristomal skin complications. Merline Sanders [facility] Apr 01, 2017 16:06
[2017-04-01 20:00] VITALS: BP 116/59; PULSE 84; RESP 20; TEMP 98.5; O2SAT 98
[2017-04-01] MEDS: ATORVASTATIN 20 MG TAB PO SCH (21:42)
[2017-04-02] VITALS: BP 121/60; PULSE 80; RESP 20; TEMP 97.9; O2SAT 97
[2017-04-02] MEDS: D5-LR + KCL 20 MEQ INJ 1,000 ML IV SCH ×3 (00:55→19:55)
[2017-04-02 04:00] VITALS: BP 130/65; PULSE 77; RESP 20; TEMP 96.7; O2SAT 96
[2017-04-02] MEDS: LOPERAMIDE HCL 2 MG CAP PO SCH ×3 (04:47→17:57)
[2017-04-02] MEDS: LEVOTHYROXINE SODIUM 100 MCG TAB PO SCH (04:47)
[2017-04-02 08:00] VITALS: BP 137/65; PULSE 81; RESP 16; TEMP 97.8; O2SAT 95
--- NOTE | 2017-04-02 08:06 | HHI.FF ---
Face to Face Verification Diagnosis: (1) Ileostomy in place (2) Status post partial resection of colon (3) Colovesical fistula Home Health Nursing Order: Medical education Wound care and dressing changes Nursing assessment with vital signs Instructions: Will need new Ileostomy teaching and supplies I have seen patient Austin Mcmullen on 04/02/17. My clinical findings support the need for the requested home health care services because: Ltd mobility - disease progression Deconditioned w/ increased weakness Limited ability to care for self I certify that my clinical findings support that this patient is homebound because: Post-op weakness Unsteady gait/balance Sundar Malloy MD Apr 02, 2017 08:06
--- NOTE | 2017-04-02 08:10 | HHI.PR ---
Subjective Remarks No N or V. Not much pain. Less Ileostomy output but still too high for D/C. Hopefully D/C tomorrow Objective Vital Signs Date Time Temp Pulse Resp B/P (MAP) Pulse Ox O2 Delivery O2 Flow Rate FiO2 04/02/17 04:00 96.7 77 20 130/65 (86) 96 04/02/17 00:00 97.9 80 20 121/60 (80) 97 04/01/17 20:10 Room Air 04/01/17 20:00 98.5 84 20 116/59 (78) 98 04/01/17 16:00 96.6 80 17 131/68 (89) 98 04/01/17 12:00 97.6 78 16 118/67 (84) 97 04/01/17 09:43 Room Air I/O 04/01/17 04/01/17 04/01/17 04/02/17 04/02/17 04/02/17 07:00 15:00 23:00 07:00 15:00 23:00 Intake Total 1240 ml 2970 ml 693 ml Output Total 1330 ml 1960 ml 335 ml Balance -90 ml 1010 ml 358 ml Intake Oral 240 ml 720 ml IV Total 1000 ml 2250 ml 693 ml Output Urine Total 400 ml 200 ml Stool Total 900 ml 1750 ml 325 ml Drainage Total 30 ml 10 ml 10 ml Result Diagram: 04/01/1743204/01/17432 Objective Remarks VS-S Abd: flat,stoma pink,wound clean,drain removed by me I&Os-Less Ileostomy output Labs-Will re check tomorrow because of high outputs Assessment and Plan Assessment and Plan Stable POD#6 Will increase Imodium to 2 PO Qid to slow Ileostomy. Also will add metamucil. Sundar Malloy MD Apr 02, 2017 08:10
[2017-04-02] MEDS: PANTOPRAZOLE SODIUM 40 MG VIAL IVP SCH (09:44)
[2017-04-02] MEDS: METOPROLOL SUCCINATE 50 MG EXTENDED RELEASE TAB PO SCH (09:45)
[2017-04-02] MEDS: SODIUM CHLORIDE 0.9% FLUSH 10 ML FLUSH IV FLUSH SCH ×2 (09:45→19:55)
[2017-04-02] MEDS: TIMOLOL MALEATE 0.5% OPHT SOLN 5 ML BTL RIGHT EYE SCH (09:45)
[2017-04-02] MEDS: HYDROCHLOROTHIAZIDE 25 MG TAB PO SCH (09:45)
[2017-04-02] MEDS: amLODIPine BESYLATE 5 MG TAB PO SCH ×2 (09:45→19:55)
[2017-04-02] MEDS: PSYLLIUM FIBER SF/GF 6 GM POWD PKT PO SCH ×2 (09:58→19:55)
[2017-04-02 12:00] VITALS: BP 115/63; PULSE 75; RESP 17; TEMP 97.8; O2SAT 98
--- NOTE | 2017-04-02 13:24 | PD.WCN.NOT ---
Wound Consult Description: Consult for NEW OSTOMY TEACHING of ILEOSTOMY per Dr Malloy Communicated with: Patient Recommendation: Continue to open the pouch, empty the pouch of effluent, and close the pouch. Change appliance every 3-7 days and PRN Additional Information: Patient seen on [address] [place] [address] from [phone] today for Ostomy teaching and appliance change with 2 1/4" supplies Ostomy Type: Ileostomy Surgeon: Sundar Malloy MD Date of Surgery: Mar 27, 2017 Complete: Starter kit, Education materials, Other (Patient demonstrated removing his appliance, applying the barrier, and attaching the pouch to the flange/barrier independently) Educated patient on: Emptying pouch before bedtime and PRN throughout the day, measuring his stoma for proper appliance size and fit, cleansing his peristomal skin, applying new barrier and pouching system, assessing removed barrier for breakdown, the need for a smaller size barrier when/if the stoma size continues to change which is expected. Additional appliances ordered for patient to go home with in a smaller size. Additional information Patient seen on [address] [place] [address] for Ostomy teaching from [id number] with appliance changed by patient independently with encouragement and minimal directions. Patient removed barrier with adhesive removal wipes, inspected the back of the barrier for breakdown which was circumferential and even. Patient cleansed his peristomal skin, which was unremarkable, with water only as directed and measured his stoma @ 1 1/4". Stoma was red, round, moderately protruding, functioning with green liquid and green soft effluent noted to pouch that was removed, lumen noted @ 4 o'clock. The mucocutaneous junction is noted with sutures intact, otherwise unremarkable. The barrier used today was a size 2 1/4 ", fitting securely and properly, and did not have to be molded to fit his stoma. Patient applied the barrier and then the pouch to the flange and held for a couple minutes to warm up appliance once it was attached. Patient closed the end of the pouch. All questions were answered regarding starter kit that was coming via [employer] from [facility] that was already ordered and home health care that is ordered as well. Patient was educated further on the need to empty the pouch before bedtime and wear a snug fitting t-shirt to secure the pouch while sleeping. Patient states that he did not realize how much work this was to take care of something like this. It was explained to him that he did it today with minimal assistance and that he could do it again with the [facility] nurse encouraging and assisting him, and he will eventually be able to do this independently and not to give up. He can still enjoy the things he used to before coming into the hospital, he can walk, and ride, and enjoy the weather and animals outside, and he was reminded that he has been inside lately and will probably feel better once he is able to get fresh air. Merline Sanders [facility] Apr 02, 2017 13:24
[2017-04-02 16:00] VITALS: BP 121/63; PULSE 82; RESP 16; TEMP 97.9; O2SAT 97
[2017-04-02] MEDS: ATORVASTATIN 20 MG TAB PO SCH (19:55)
[2017-04-02 20:00] VITALS: BP 130/71; PULSE 70; RESP 18; TEMP 96.8; O2SAT 97
[2017-04-03] VITALS: BP 128/60; PULSE 87; RESP 20; TEMP 98.2; O2SAT 96
[2017-04-03] MEDS: LOPERAMIDE HCL 2 MG CAP PO SCH ×3 (00:38→12:00)
[2017-04-03 04:00] VITALS: BP 133/66; PULSE 92; RESP 18; TEMP 99; O2SAT 96
[2017-04-03] MEDS: D5-LR + KCL 20 MEQ INJ 1,000 ML IV SCH (05:04)
[2017-04-03] MEDS: LEVOTHYROXINE SODIUM 100 MCG TAB PO SCH (05:04)
[2017-04-03 07:37] LABS: AUTOMATED NEUTROPHIL # 9.6 TH/MM3 (1.8-7.7); BASOPHIL # 0.1 TH/MM3 (0-0.2); BASOPHIL % 0.9 % (0.0-2.0); EOSINOPHIL # 0.5 TH/MM3 (0-0.4); EOSINOPHIL % 3.7 % (0.0-4.0); HEMATOCRIT 35.6 % (39.0-51.0); HEMO FLAGS DIFF FINAL; LYMPH % 12.1 % (9.0-44.0); LYMPHOCYTE # 1.7 TH/MM3 (1.0-4.8); MEAN CELL VOLUME 91.1 FL (80.0-100.0); MEAN CORPUSCULAR HEMOGLOBIN 31.6 PG (27.0-34.0); MEAN CORPUSCULAR HGB CONC 34.7 % (32.0-36.0); MONO % 14.1 % (0.0-8.0); NEUT % 69.2 % (16.0-70.0); PLATELET COUNT 353 TH/MM3 (150-450); RED CELL DISTRIBUTION WIDTH 13.7 % (11.6-17.2); WHITE BLOOD COUNT 13.8 TH/MM3 (4.0-11.0)
[2017-04-03 08:00] VITALS: BP 131/68; PULSE 89; RESP 16; TEMP 98.7; O2SAT 92
[2017-04-03 08:04] LABS: BICARBONATE 30.5 MEQ/L (21.0-32.0); POTASSIUM 3.5 MEQ/L (3.5-5.1)
[2017-04-03] MEDS: SODIUM CHLORIDE 0.9% FLUSH 10 ML FLUSH IV FLUSH SCH (09:00)
[2017-04-03] MEDS: TIMOLOL MALEATE 0.5% OPHT SOLN 5 ML BTL RIGHT EYE SCH (09:51)
[2017-04-03] MEDS: PANTOPRAZOLE SODIUM 40 MG VIAL IVP SCH (09:52)
[2017-04-03] MEDS: amLODIPine BESYLATE 5 MG TAB PO SCH (09:53)
[2017-04-03] MEDS: HYDROCHLOROTHIAZIDE 25 MG TAB PO SCH (09:53)
[2017-04-03] MEDS: METOPROLOL SUCCINATE 50 MG EXTENDED RELEASE TAB PO SCH (09:53)
[2017-04-03] MEDS: PSYLLIUM FIBER SF/GF 6 GM POWD PKT PO SCH (09:53)
[2017-04-03] MEDS ORDERED: SUGAMMADEX SODIUM 200 MG/2 ML VIAL IV PUSH ONE ×2 (11:48)
[2017-04-03 12:00] VITALS: BP 129/74; PULSE 82; RESP 16; TEMP 97.4; O2SAT 98
[2017-04-03] MEDS ORDERED: WALKER WHEELS/F1 MIS (13:30)
[2017-04-03] MEDS ORDERED: LOPE-1 PO (13:38)
--- NOTE | 2017-04-03 13:50 | HHI.PR ---
Subjective . Less output on Imodium Objective . VS-S Abd:flat,soft Assessment/Plan . Stable POD#7 D/C today Sundar Malloy MD Apr 03, 2017 13:50
--- NOTE | 2017-05-02 08:09 | MD ---
cc: AMARIS SMITH M.D. ADMISSION DATE: 03/27/2017 DISCHARGE DATE: 04/03/2017 ADMISSION DIAGNOSIS Colovesical fistula secondary to Crohn's disease. DISCHARGE DIAGNOSIS Colovesical fistula secondary to Crohn's disease. OPERATIVE PROCEDURE 1. 03/27/2017 left colectomy with low colorectal anastomosis and diverting ileostomy. 2. Appendectomy 3. Mobilization of the splenic flexure with omental flap. LABORATORY DATA The pathology report on the removed specimen revealed that there was severe chronic active colitis with cryptitis, pseudopolyps and a fistula tract. Proximal and distal resection margins were negative for significant inflammation. HOSPITAL COURSE The patient was admitted to the hospital on 03/27/2017 and underwent left colectomy with colorectal anastomosis and diverting ileostomy as mentioned. Postoperatively, he had enterostomal therapy teaching. He was started on clear liquid diet on the first postoperative day and then eventually on a full liquid diet. Ileostomy started functioning and he had high outputs for a time and was started on Imodium. He was eventually discharged from the hospital in stable condition on 04/03/2017. He was instructed to take Imodium for any high outputs and he was sent home with home health care for further ileostomy teaching and supplies. He was instructed to no driving for two weeks, do no heavy lifting for six weeks and call with any problems. He was instructed to follow up with me in the office in two weeks time. MD SOPHIA Denise/LUIS EDUARDO /11:19 AM /7:56 AM
== END 2017-04-03 16:27 | disposition home health service (06) | DRG 330 ==
LOC: HSDI 03-27 12:24 → N03B 03-27 20:18 → N07B 03-28 12:39
PROVIDERS: ADMIT Colon & Rectal Surgery; ATTEND Colon & Rectal Surgery
PROC: 0D1B0Z4 Bypass Ileum to Cutaneous, Open Approach (ICD-10-PCS; 2017-03-27)
PROC: 0DJD8ZZ Inspection of Lower Intestinal Tract, Via Natural or Artificial Opening Endoscopic (ICD-10-PCS; 2017-03-27)
PROC: 0DTG0ZZ Resection of Left Large Intestine, Open Approach (ICD-10-PCS; principal; 2017-03-27 15:13)
PROC: 0DTJ0ZZ Resection of Appendix, Open Approach (ICD-10-PCS; 2017-03-27 15:13)
DX: K50.113 Crohn's disease of large intestine with fistula (principal); I10 Essential (primary) hypertension; K38.8 Other specified diseases of appendix; E78.5 Hyperlipidemia, unspecified; Z53.29 Procedure and treatment not carried out because of patient's decision for other reasons; Z87.891 Personal history of nicotine dependence; Z88.2 Allergy status to sulfonamides
CPT/HCPCS: 80048; 84132; 84155; 85007; 85025; 85027; 86850; 86900; 86901; 87641; 88307; 93308; 94150; C9113; J0131; J0690; J1940; J2250; J2270; J2370; J2405; J2710; J2765; J3010; J3480; J7040; J7042; J7050; J7120

== ENCOUNTER → 2017-03-20 | Outpatient (CLI) | payer MEDICARE ==
[~2017-03-20] MED LIST: AMLO5TAB2 PO; ATOR20TA15 PO; FLAX100013 PO; HYDR25TA5 PO; LATA0.002 RIGHT EYE; LEVO100T5 PO; LIAL1.2T PO; LOPE-1 PO; MERC50TA PO; METO50TA11 PO; MULTTAB23 PO; TIMO0.5S30 RIGHT EYE; VITA2000 PO; WALKER WHEELS/F1 MIS
--- NOTE | 2017-03-20 11:05 | RADRPT ---
EXAM DATE/TIME: 03/20/2017 10:53 [place] COMPARISON: No previous studies available for comparison. INDICATIONS : Evaluate for pneumonia, pneumothorax, or communicable disease. Pre-op for anterior resection of sigmo id. MEDICAL HISTORY : Hypertension. SURGICAL HISTORY : None. ENCOUNTER: Initial ACUITY: 1 day PAIN SCORE: 0/10 LOCATION: Bilateral chest FINDINGS: PA and lateral views of the chest demonstrate the lungs to be symmetrically aerated without evidence of mass, infiltrate or effusion. The cardiomediastinal contours are unremarkable. Osseous structure s are intact. CONCLUSION: No acute disease. Sundar Valdez MD on March 20, 2017 at 11:02 Board Certified Radiologist. This report was verified electronically.
[2017-03-20 11:21] LABS: AUTOMATED NEUTROPHIL # 7.7 TH/MM3 (1.8-7.7); BASOPHIL # 0.2 TH/MM3 (0-0.2); BASOPHIL % 1.8 % (0.0-2.0); EOSINOPHIL # 0.3 TH/MM3 (0-0.4); EOSINOPHIL % 2.7 % (0.0-4.0); HEMATOCRIT 39.8 % (39.0-51.0); HEMO FLAGS DIFF FINAL; LYMPH % 18.1 % (9.0-44.0); LYMPHOCYTE # 2.1 TH/MM3 (1.0-4.8); MEAN CELL VOLUME 89.6 FL (80.0-100.0); MEAN CORPUSCULAR HEMOGLOBIN 31.9 PG (27.0-34.0); MEAN CORPUSCULAR HGB CONC 35.6 % (32.0-36.0); MONO % 11.8 % (0.0-8.0); NEUT % 65.6 % (16.0-70.0); PLATELET COUNT 322 TH/MM3 (150-450); RED BLOOD COUNT 4.44 MIL/MM3 (4.50-5.90); RED CELL DISTRIBUTION WIDTH 14.1 % (11.6-17.2); WHITE BLOOD COUNT 11.8 TH/MM3 (4.0-11.0)
[2017-03-20 11:27] LABS: APTT (PATIENT) 25.6 SEC (24.3-30.1); PROTHROMBIN TIME - PATIENT 10.8 SEC (9.8-11.6)
[2017-03-20 11:37] LABS: BACTERIA, URINE RARE /hpf; BLOOD, URINE TRACE (NEG); COMMENT (UR) CULT NOT INDICATED; CULTURE IF INDICATED CULT NOT INDICATED; GLUCOSE,URINE NEG (NEG); HYALINE CAST, URINE 2 /lpf (RARE); KETONE, URINE NEG (NEG); MUCUS URINE FEW /lpf (OCC); NITRITE,URINE NEG (NEG); PH, URINE 6.5 (5.0-8.5); URINE COLOR YELLOW (YELLW/STRAW)
[2017-03-20 11:45] LABS: ANION GAP 7 MEQ/L (5-15); AST (GOT) 15 U/L (15-37); BICARBONATE 32.6 MEQ/L (21.0-32.0); BLOOD UREA NITROGEN 15 MG/DL (7-18); CHLORIDE 97 MEQ/L (98-107); GLOMERULAR FILTRATION RATE 75 ML/MIN (>89); GLUCOSE,FASTING 103 MG/DL (74-99); POTASSIUM 3.3 MEQ/L (3.5-5.1); SODIUM (NA) 137 MEQ/L (136-145)
[2017-03-20 11:46] LABS: ALT (GPT) 30 U/L (12-78)
[2017-03-20 11:48] LABS: ALKALINE PHOSPHATASE 124 U/L (45-117); TOTAL BILIRUBIN ADULT 0.8 MG/DL (0.2-1.0)
--- NOTE | 2017-03-21 15:20 | EKG ---
Date Performed: 03/20/2017 Time Performed: 10:02:47 PTAGE: 76 years EKG: Sinus rhythm NONSPECIFIC T-WAVE ABNORMALITY BORDERLINE ECG NO PREVIOUS TRACING DOCTOR: Tyler Narayanan Interpretating Date/Time 03/21/2017 15:17:28
== END ==
LOC: CPRE 10:45
PROVIDERS: ATTEND Colon & Rectal Surgery
DX: Z01.812 Encounter for preprocedural laboratory examination (principal); Z01.810 Encounter for preprocedural cardiovascular examination; K50.10 Crohn's disease of large intestine without complications; N32.1 Vesicointestinal fistula; Z79.01 Long term (current) use of anticoagulants
CPT/HCPCS: 36415; 71020; 80053; 81001; 85025; 85610; 85730; 93005

== ENCOUNTER 2017-06-26 11:00 | Inpatient (IN) | payer MEDICARE ==
[~2017-06-26] VITALS: Ht 175.3 cm; Wt 68.0 kg
[~2017-06-26 11:00] MED LIST changes: -MERC50TA PO; +METO1TAB9 PO; -METO50TA11 PO; +OMEP20TA93 PO; +REME15TA PO; -WALKER WHEELS/F1 MIS
[2017-06-26] MEDS ORDERED: TIMO0.5S30 RIGHT EYE (11:55)
[2017-06-26] MEDS ORDERED: SODIUM CHLORID 0.9% 500 ML IV PRN (12:00)
[2017-06-26] MEDS ORDERED: CHLORHEXIDINE GLUCONATE 2 % 1 PACK (2 CLOTHS) TOPICAL PRN (12:00)
[2017-06-26] MEDS ORDERED: ALVIMOPAN 12 MG CAPSULE - On Call PO SCH (12:00)
[2017-06-26] MEDS ORDERED: ceFAZolin 1,000 MG/NS 100 ML IV SCH ×2 (12:00)
[2017-06-26] MEDS ORDERED: PROPOFOL 200 MG/20 ML AMP IV ONE (12:00)
[2017-06-26] MEDS ORDERED: ONDANSETRON HCL 4 MG/2 ML VIAL IV PUSH ONE (12:00)
[2017-06-26] MEDS ORDERED: METRONIDAZOLE 500 MG/100 ML ISONTONIC SOLN IV SCH (12:00)
[2017-06-26] MEDS ORDERED: DEXAMETHASONE SOD PHOS 4 MG/ML VIAL IV ONE (12:00)
[2017-06-26] MEDS ORDERED: POVIDONE IODINE 5% (ANTISEPSIS KIT) 4 APPLICATIONS EACH NARE PRN (12:00)
[2017-06-26] MEDS: DEXT 5%-NACL 0.9% 1000 ML INJ 1,000 ML IV SCH ×2 (12:00→20:00)
[2017-06-26] MEDS ORDERED: METOPROLOL TARTRATE 25 MG TAB PO PRN (12:00)
[2017-06-26] MEDS ORDERED: LACTATED RINGER'S 1000 ML IV PRN (12:00)
[2017-06-26] MEDS ORDERED: LIDOCAINE HCL 1% PF 5 ML SYRINGE OTHER ONE (12:00)
[2017-06-26] MEDS ORDERED: ROCURONIUM INJ 50 MG/5 ML SYRINGE IV PUSH ONE (12:00)
[2017-06-26] MEDS ORDERED: ACETAMINOPHEN 1000 MG/100 ML 100 ML IV ONE (12:15)
[2017-06-26 12:24] LABS: AUTOMATED NEUTROPHIL # 9.3 TH/MM3 (1.8-7.7); BASOPHIL # 0.2 TH/MM3 (0-0.2); BASOPHIL % 1.2 % (0.0-2.0); EOSINOPHIL # 0.2 TH/MM3 (0-0.4); EOSINOPHIL % 1.8 % (0.0-4.0); HEMATOCRIT 38.1 % (39.0-51.0); HEMO FLAGS DIFF FINAL; LYMPH % 15.8 % (9.0-44.0); LYMPHOCYTE # 2.1 TH/MM3 (1.0-4.8); MEAN CELL VOLUME 90.7 FL (80.0-100.0); MEAN CORPUSCULAR HEMOGLOBIN 30.7 PG (27.0-34.0); MEAN CORPUSCULAR HGB CONC 33.9 % (32.0-36.0); MONO % 11.8 % (0.0-8.0); NEUT % 69.4 % (16.0-70.0); PLATELET COUNT 418 TH/MM3 (150-450); RED CELL DISTRIBUTION WIDTH 14.1 % (11.6-17.2); WHITE BLOOD COUNT 13.5 TH/MM3 (4.0-11.0)
[2017-06-26] MEDS ORDERED: SUGAMMADEX SODIUM 200 MG/2 ML VIAL IV PUSH ONE ×2 (14:05)
[2017-06-26] MEDS: D5-LR + KCL 20 MEQ INJ 1,000 ML IV SCH (14:51)
[2017-06-26] MEDS ORDERED: metroNIDAZOLE 500 MG INJ 100 ML IV SCH (15:00)
[2017-06-26] MEDS ORDERED: ACETAMINOPHEN/HYDROcodone 325 MG/5 MG TAB PO PRN ×2 (15:00)
[2017-06-26] MEDS ORDERED: ENALAPRILAT 1.25 MG/ML VIAL IV PUSH PRN (15:00)
[2017-06-26] MEDS ORDERED: POTASSIUM CHLOR 20 MEQ PREMIX 100 ML IV PRN (15:00)
[2017-06-26] MEDS ORDERED: Post-op Orders (for Pharmacy) MISC XX ONE (15:00)
[2017-06-26] MEDS ORDERED: DO NOT ADM ANY ANTICOAGULANT DRUGS PRN (15:00)
[2017-06-26] MEDS ORDERED: NALOXONE HCL 0.4 MG/ML AMP IV PUSH PRN (15:00)
[2017-06-26] MEDS ORDERED: ceFAZolin 2 GM PREMIX 50 ML IV SCH (15:00)
[2017-06-26] MEDS ORDERED: POTASSIUM CHLOR 40 MEQ PREMIX 100 ML IV PRN (15:00)
[2017-06-26] MEDS: SODIUM CHLORIDE 0.9% FLUSH 10 ML FLUSH IV FLUSH SCH ×2 (15:00→19:55)
[2017-06-26] MEDS ORDERED: SODIUM CHLORIDE 0.9% FLUSH 10 ML FLUSH IV FLUSH PRN (15:00)
[2017-06-26] MEDS ORDERED: MORPHINE SULFATE 30 MG/30 ML PCA IV SCH (15:00)
[2017-06-26] MEDS ORDERED: *morphine SULFATE 8 MG/ML PERIprocedure ONLY ONE ×2 (15:31→16:25)
[2017-06-26 15:36] LABS: BICARBONATE 27.3 MEQ/L (21.0-32.0); POTASSIUM 3.4 MEQ/L (3.5-5.1)
[2017-06-26] MEDS: METOCLOPRAMIDE HCL 10 MG/2 ML VIAL IVS SCH (17:42)
[2017-06-26] MEDS: MIRTAZAPINE 15 MG TAB PO SCH (19:55)
[2017-06-26] MEDS: amLODIPine BESYLATE 5 MG TAB PO SCH (19:55)
[2017-06-26] MEDS: ATORVASTATIN 20 MG TAB PO SCH (19:55)
[2017-06-26] MEDS: ceFAZolin 2 GM PREMIX 50 ML IV SCH (19:56)
[2017-06-26 20:00] VITALS: BP 127/64; PULSE 95; RESP 20; TEMP 96.5; O2SAT 97
[2017-06-26] MEDS: metroNIDAZOLE 500 MG INJ 100 ML IV SCH (21:49)
[2017-06-26] MEDS: PCA - TOTAL MG MORPHINE DELIVERED PER SHIFT SCH (22:00)
[2017-06-27] VITALS: BP 129/65; PULSE 67; RESP 18; TEMP 97.5; O2SAT 97
[2017-06-27] MEDS: METOCLOPRAMIDE HCL 10 MG/2 ML VIAL IVS SCH ×5 (00:31→23:02)
[2017-06-27] MEDS: D5-LR + KCL 20 MEQ INJ 1,000 ML IV SCH ×2 (00:31→12:44)
[2017-06-27] MEDS: DEXT 5%-NACL 0.9% 1000 ML INJ 1,000 ML IV SCH (03:33)
[2017-06-27 04:00] VITALS: BP 143/69; PULSE 85; RESP 18; TEMP 96.8; O2SAT 96
[2017-06-27] MEDS: ceFAZolin 2 GM PREMIX 50 ML IV SCH ×2 (04:56→12:44)
[2017-06-27] MEDS: metroNIDAZOLE 500 MG INJ 100 ML IV SCH ×2 (05:53→14:54)
[2017-06-27] MEDS: PCA - TOTAL MG MORPHINE DELIVERED PER SHIFT SCH (06:00)
--- NOTE | 2017-06-27 06:35 | HHI.PR ---
Subjective Remarks No N or V. No Bms yet. Tolerating FLD Objective Vital Signs Date Time Temp Pulse Resp B/P (MAP) Pulse Ox O2 Delivery O2 Flow Rate FiO2 06/27/17 06:00 18 06/27/17 04:00 96.8 85 18 143/69 (93) 96 06/27/17 00:00 97.5 67 18 129/65 (86) 97 06/26/17 22:00 18 06/26/17 20:00 96.5 95 20 127/64 (85) 97 06/26/17 16:30 18 06/26/17 16:15 80 21 122/58 (79) 93 Room Air 06/26/17 16:00 76 20 129/61 (83) 96 Room Air 06/26/17 15:45 75 19 134/60 (84) 99 Room Air 06/26/17 15:41 22 06/26/17 15:36 15 06/26/17 15:30 80 19 134/63 (86) 100 Room Air 06/26/17 15:15 82 12 142/55 (84) 98 Room Air 06/26/17 15:00 97.0 86 11 156/69 (98) 98 06/26/17 12:02 97.8 73 20 115/58 (77) 99 I/O 06/26/17 06/26/17 06/26/17 06/27/17 06/27/17 06/27/17 07:00 15:00 23:00 07:00 15:00 23:00 Intake Total 900 ml Output Total 10 ml 450 ml Balance 890 ml -450 ml Other 900 ml Output Urine Total 450 ml Estimated Blood Loss 10 ml Result Diagram: 06/26/17 1203 06/26/17 1506 Objective Remarks VS-S Abd: flat,soft,dressing dry Assessment and Plan Assessment and Plan Stable POD#1 D/C GUEST ROOM ATTENDANT FLD Regular diet in AM Decrease Sundar Ndiaye MD Jun 27, 2017 06:35
[2017-06-27 07:33] LABS: BASOPHIL % 0.3 % (0.0-2.0); HEMATOCRIT 34.1 % (39.0-51.0); HEMO FLAGS DIFF FINAL; LYMPHOCYTE # 1.3 TH/MM3 (1.0-4.8); MEAN CELL VOLUME 91.1 FL (80.0-100.0); MEAN CORPUSCULAR HEMOGLOBIN 31.7 PG (27.0-34.0); MEAN CORPUSCULAR HGB CONC 34.8 % (32.0-36.0); NEUT % 81.7 % (16.0-70.0); PLATELET COUNT 385 TH/MM3 (150-450); RED BLOOD COUNT 3.74 MIL/MM3 (4.50-5.90); RED CELL DISTRIBUTION WIDTH 13.9 % (11.6-17.2); WHITE BLOOD COUNT 15.9 TH/MM3 (4.0-11.0)
[2017-06-27 07:45] LABS: BICARBONATE 28.2 MEQ/L (21.0-32.0); POTASSIUM 3.4 MEQ/L (3.5-5.1)
[2017-06-27 08:00] VITALS: BP 124/58; PULSE 76; RESP 16; TEMP 96.4; O2SAT 98
[2017-06-27] MEDS: PANTOPRAZOLE SODIUM 40 MG VIAL IVP SCH ×2 (08:39→08:44)
[2017-06-27] MEDS: LEVOTHYROXINE SODIUM 100 MCG TAB PO SCH (08:41)
[2017-06-27] MEDS: SODIUM CHLORIDE 0.9% FLUSH 10 ML FLUSH IV FLUSH SCH ×2 (08:41→21:33)
[2017-06-27] MEDS: METOPROLOL SUCCINATE 50 MG EXTENDED RELEASE TAB PO SCH (08:41)
[2017-06-27] MEDS: amLODIPine BESYLATE 5 MG TAB PO SCH ×2 (08:42→21:27)
[2017-06-27] MEDS: ALVIMOPAN 12 MG CAPSULE - Post-op dosing PO SCH ×2 (08:42→21:23)
[2017-06-27] MEDS: HYDROCHLOROTHIAZIDE 25 MG TAB PO SCH (08:43)
[2017-06-27] MEDS: TIMOLOL MALEATE 0.5% OPHT SOLN 5 ML BTL RIGHT EYE SCH (08:44)
[2017-06-27] MEDS ORDERED: MESALAMINE 1.2 GM PO SCH (09:00)
[2017-06-27 12:00] VITALS: BP 130/62; PULSE 68; RESP 16; TEMP 96.1; O2SAT 98
[2017-06-27 16:00] VITALS: BP 126/60; PULSE 71; RESP 16; TEMP 97; O2SAT 95
--- NOTE | 2017-06-27 16:53 | MP ---
cc: AMARIS MALLOY M.D. DATE OF SURGERY: 06/27/2017. PREOPERATIVE DIAGNOSIS: Diverting loop ileostomy. POSTOPERATIVE DIAGNOSIS: Diverting loop ileostomy. OPERATIVE PROCEDURE PERFORMED: Small bowel resection with closure of ileostomy. SURGEON: Amaris Malloy M.D. PINKED EDGE SEWING MACHINE OPERATOR: Ramon Yao MD. ANESTHESIA: General endotracheal anesthesia. ESTIMATED BLOOD LOSS: Minimal. OPERATIVE FINDINGS: This patient had a diverting loop ileostomy after a colectomy for a colovesical fistula in a patient's with Crohn's colitis. He ended up having a near coloanal anastomosis. At surgery, the small bowel was mobilized proximal and distal to the ileostomy and the small bowel was resected and anastomosis was done. OPERATIVE TECHNIQUE: The patient was placed on the table in supine position. After adequate general endotracheal anesthesia, the mucosa of the ileostomy was sutured closed and the ileostomy and the abdomen was prepped and draped in the usual manner. A vertical elliptical skin incision was made and taken down through the subcutaneous tissue to the rectus muscle layer and the ileostomy protruding through the abdominal wall was dissected free of the rectus muscle. Peritoneal cavity was entered and the ileostomy was circumferentially mobilized from the peritoneal edges and the rectus muscle. Once adequate prolapse of the proximal and distal small bowel was obtained, the proximal small bowel was divided with an Ethicon MYRON 55 stapling device and the distal loop of the ileum was divided between Tu clamps. The mesentery was clamped, cut and ligated and the specimen of small bowel including the stoma was removed from the table and sent to pathology. Next the anastomosis was carried out along the antimesenteric borders of the small bowel with an Ethicon MYRON 55 stapling device and the enterotomy was closed with a TX 60 blue staple height stapling device. The opening in the mesentery was closed with a running 3-0 Vicryl suture and the bowel was replaced in the abdominal cavity. Hemostasis was maintained throughout with electrocautery and ligature and then the abdominal cavity was closed in two layers using a single strand of #1 PDS for the posterior rectus sheath and a single strand of #1 PDS for the anterior rectus sheath and the subcutaneous tissue was irrigated thoroughly with saline solution, aspirated dry and the skin was closed with running 3-0 Vicryl subcuticular suture and a dressing was applied. Sponge, needle and instrument counts were reported as correct. Estimated blood loss was minimal. The patient tolerated the procedure well and left the operating room in good condition. MD SOPHIA Denise/LYLE /9:51 PM /4:42 PM
[2017-06-27 20:49] VITALS: BP 120/58; PULSE 62; RESP 20; TEMP 98.2; O2SAT 94
[2017-06-27] MEDS ORDERED: ALVIMOPAN 12 MG CAPSULE PO SCH (21:00)
[2017-06-27] MEDS: ATORVASTATIN 20 MG TAB PO SCH (21:26)
[2017-06-27] MEDS: MIRTAZAPINE 15 MG TAB PO SCH (21:26)
[2017-06-28 02:22] VITALS: BP 121/63; PULSE 66; RESP 20; TEMP 96.6; O2SAT 98
[2017-06-28] MEDS: D5-LR + KCL 20 MEQ INJ 1,000 ML IV SCH ×2 (03:05→15:22)
[2017-06-28] MEDS: METOCLOPRAMIDE HCL 10 MG/2 ML VIAL IVS SCH ×4 (04:57→20:20)
[2017-06-28 06:56] LABS: AUTOMATED NEUTROPHIL # 15.2 TH/MM3 (1.8-7.7); BASOPHIL # 0.1 TH/MM3 (0-0.2); BASOPHIL % 0.4 % (0.0-2.0); EOSINOPHIL # 0.2 TH/MM3 (0-0.4); EOSINOPHIL % 0.9 % (0.0-4.0); HEMATOCRIT 34.2 % (39.0-51.0); HEMO FLAGS DIFF FINAL; LYMPH % 5.8 % (9.0-44.0); LYMPHOCYTE # 1.1 TH/MM3 (1.0-4.8); MEAN CELL VOLUME 90.4 FL (80.0-100.0); MEAN CORPUSCULAR HEMOGLOBIN 31.6 PG (27.0-34.0); MONO % 11.4 % (0.0-8.0); NEUT % 81.5 % (16.0-70.0); PLATELET COUNT 374 TH/MM3 (150-450); RED BLOOD COUNT 3.79 MIL/MM3 (4.50-5.90); RED CELL DISTRIBUTION WIDTH 13.8 % (11.6-17.2); WHITE BLOOD COUNT 18.7 TH/MM3 (4.0-11.0)
[2017-06-28 07:20] LABS: BICARBONATE 31.3 MEQ/L (21.0-32.0); POTASSIUM 3.3 MEQ/L (3.5-5.1)
[2017-06-28 08:00] VITALS: BP 113/60; PULSE 77; RESP 18; TEMP 96.3; O2SAT 96
[2017-06-28] MEDS: TIMOLOL MALEATE 0.5% OPHT SOLN 5 ML BTL RIGHT EYE SCH (09:00)
[2017-06-28] MEDS: PSYLLIUM FIBER SF/GF 6 GM POWD PKT PO SCH ×3 (09:00→17:21)
[2017-06-28] MEDS: SODIUM CHLORIDE 0.9% FLUSH 10 ML FLUSH IV FLUSH SCH ×2 (09:08→20:16)
[2017-06-28] MEDS: amLODIPine BESYLATE 5 MG TAB PO SCH ×2 (09:08→20:16)
[2017-06-28] MEDS: PANTOPRAZOLE SODIUM 40 MG VIAL IVP SCH (09:08)
[2017-06-28] MEDS: HYDROCHLOROTHIAZIDE 25 MG TAB PO SCH (09:08)
[2017-06-28] MEDS: LEVOTHYROXINE SODIUM 100 MCG TAB PO SCH (09:08)
[2017-06-28] MEDS: METOPROLOL SUCCINATE 50 MG EXTENDED RELEASE TAB PO SCH (09:08)
[2017-06-28] MEDS: LOPERAMIDE HCL 2 MG CAP PO SCH ×2 (09:08→20:16)
[2017-06-28] MEDS: ALVIMOPAN 12 MG CAPSULE - Post-op dosing PO SCH ×2 (09:11→20:16)
[2017-06-28 12:00] VITALS: BP 115/57; PULSE 65; RESP 17; TEMP 96.7; O2SAT 98
[2017-06-28 14:00] VITALS: BP 121/58; PULSE 76; RESP 18; TEMP 97.3; O2SAT 97
[2017-06-28 20:00] VITALS: BP 113/55; PULSE 67; RESP 20; TEMP 97.2; O2SAT 97
[2017-06-28] MEDS: MIRTAZAPINE 15 MG TAB PO SCH (20:16)
[2017-06-28] MEDS: ATORVASTATIN 20 MG TAB PO SCH (20:16)
[2017-06-29] MEDS: D5-LR + KCL 20 MEQ INJ 1,000 ML IV SCH (04:48)
[2017-06-29] MEDS: METOCLOPRAMIDE HCL 10 MG/2 ML VIAL IVS SCH (04:48)
[2017-06-29 08:00] VITALS: BP 113/56; PULSE 67; RESP 18; TEMP 97.4; O2SAT 97
[2017-06-29] MEDS: PSYLLIUM FIBER SF/GF 6 GM POWD PKT PO SCH (09:00)
[2017-06-29] MEDS: TIMOLOL MALEATE 0.5% OPHT SOLN 5 ML BTL RIGHT EYE SCH (09:00)
[2017-06-29] MEDS: PANTOPRAZOLE SODIUM 40 MG VIAL IVP SCH (09:15)
[2017-06-29] MEDS: SODIUM CHLORIDE 0.9% FLUSH 10 ML FLUSH IV FLUSH SCH (09:15)
[2017-06-29] MEDS: LOPERAMIDE HCL 2 MG CAP PO SCH (09:16)
[2017-06-29] MEDS: ALVIMOPAN 12 MG CAPSULE - Post-op dosing PO SCH (09:16)
[2017-06-29] MEDS: LEVOTHYROXINE SODIUM 100 MCG TAB PO SCH (09:17)
[2017-06-29] MEDS: amLODIPine BESYLATE 5 MG TAB PO SCH (09:17)
[2017-06-29] MEDS: METOPROLOL SUCCINATE 50 MG EXTENDED RELEASE TAB PO SCH (09:17)
[2017-06-29] MEDS: HYDROCHLOROTHIAZIDE 25 MG TAB PO SCH (09:20)
--- NOTE | 2017-07-01 21:10 | MD ---
cc: AMARIS MALLOY M.D. ADMISSION DATE: 06/26/2017 DISCHARGE DATE: 06/29/2017 ADMISSION DIAGNOSIS Ileostomy. DISCHARGE DIAGNOSIS Ileostomy. OPERATIVE PROCEDURE 06/27/2017: Small bowel resection with closure of ileostomy. HOSPITAL COURSE The patient was admitted to the hospital on 06/27/2017 for closure of his ileostomy. He had an ileostomy after colectomy for a colovesical fistula with a diagnosis of Crohn's colitis. He ended up having a near coloanal anastomosis but at surgery we were able to do a very low product support technician mentioned and a diverting ileostomy was done and he came in for closure at this time. This was accomplished on the date of admission. On the first postoperative day he was started on clear liquid diet, advanced to a full liquid diet and on the second postoperative day he was given a full regular diet and discharged from the hospital in good condition. DISCHARGE INSTRUCTIONS He was instructed to follow up with me in the office in 2 weeks' time. He was instructed to do no driving for 2 weeks and do no heavy lifting for 6 weeks. He is instructed to call me with any problems. Amaris Malloy MD JTT/[place] /6:31 PM /9:08 PM
== END 2017-06-29 12:21 | disposition home or self-care (01) | DRG 331 ==
LOC: HSDC 11:00 → HSDI 15:02 → EDSTATUS 16:30 → N07B 16:39
PROVIDERS: ADMIT Colon & Rectal Surgery; ATTEND Colon & Rectal Surgery
PROC: 0DBB0ZZ Excision of Ileum, Open Approach (ICD-10-PCS; principal; 2017-06-26 13:47)
DX: Z43.2 Encounter for attention to ileostomy (principal); I10 Essential (primary) hypertension; Z87.19 Personal history of other diseases of the digestive system; E78.5 Hyperlipidemia, unspecified; E03.9 Hypothyroidism, unspecified; Z88.2 Allergy status to sulfonamides
CPT/HCPCS: 80048; 85025; 86850; 86900; 86901; 88304; 94150; C9113; J0131; J0690; J1100; J2270; J2405; J2765; J3010; J3480; J7120